=== PATIENT | male | born 1995 | race Caucasian/White ===

== ENCOUNTER 2020-09-14 00:14 | Emergency (ER) | payer OTHER ==
[~2020-09-14 00:14] MED LIST: BACTROBAN CREAM15 GM TOP; PREDNISONE20 MG PO
== END 2020-09-14 02:50 | disposition home or self-care (01) ==
LOC: ER1 00:14
DX: S30.0XXA Contusion of lower back and pelvis, initial encounter (principal); E11.9 Type 2 diabetes mellitus without complications; Z79.84 Long term (current) use of oral hypoglycemic drugs; Z79.899 Other long term (current) drug therapy; W01.0XXA Fall on same level from slipping, tripping and stumbling without subsequent striking against object, initial encounter; Y92.89 Other specified places as the place of occurrence of the external cause; Y99.0 Civilian activity done for income or pay
CPT/HCPCS: 72131; 93005; 99284